=== PATIENT | female | born 1995 | race Caucasian/White ===

== ENCOUNTER 2022-02-08 08:36 | Outpatient (CLI) | payer BC, SELFPAY ==
--- NOTE | 2022-02-08 09:28 | PDOC.NST_ITS ---
Date of service: 02/08/22
--- NOTE | 2022-02-08 09:28 | W.OBNST ---
Date of service: 02/08/22
[2022-02-08 09:54] VITALS: BP 128/63; PULSE 86; TEMP 36.9
[2022-02-08 10:05] LABS: ROM Plus Negative
[2022-02-08 10:05] LABS: HGB 11.1 g/dL (11.2-15.7); MCH 28.8 pg (27.0-33.0); MCHC 32.6 % (32.0-36.0); MCV 88 fL (80-95); MPV 11.9 fL (8.0-11.0); Platelet Count 187 10^3/uL (130-400); RBC 3.86 10^6/uL (3.93-5.22); RDW-SD 43.7 fL; WBC 9.07 10^3/uL (4.4-10.8)
[2022-02-08 10:18] LABS: ALT 18 U/L (14-59); AST 15 U/L (15-37); Albumin 2.8 g/dL (3.4-5.0); Alkaline Phosphatase 135 U/L (46-116); Anion Gap 11.5 mmol/L (3-11); BUN 8 mg/dL (7-18); Bilirubin, Total 0.3 mg/dL (0.2-1.0); CO2 21.5 mmol/L (21.0-32.0); CREATININE 0.8 mg/dL (0.55-1.02); Chloride 105 mmol/L (98-107); Glucose 89 mg/dL (74-106); Potassium 3.7 mmol/L (3.5-5.1); Sodium 138 mmol/L (136-145); Total Protein 6.7 g/dL (6.4-8.2); Uric Acid 5.9 mg/dL (2.6-6.0)
--- NOTE | 2022-02-08 10:24 | PDOC.NST_ITS ---
Date of service: 02/08/22 Time of Service: 10:24 NST Evaluation Reason for NST Reasons for Nonstress Test: GESTATIONAL HYPERTENSION and OTHER, SEE COMMENT Reason for NST Other: question rupture Gestational Age Gestational Age in Weeks and Days: 38 Weeks and 0Days Test and Monitor Explained Test/Monitor Explained: Test Explained, Monitor Explained and Patient Verbalized Understanding Vital Signs Blood Pressure: 128/63 Pulse: 86 Temperature: 36.9 C Urine Results Urine Protein: Negative Urine Ketones: Negative Urine Glucose: Negative Urine Blood: Negative NST Information Date on Monitor: 02/08/22 Time on Monitor: 09:42 Date off Monitor: 02/08/22 Time off Monitor: 10:12 Total Time on Monitor: 30 NST Interventions: PO Hydration Contraction Frequency: 3-5 NST Evaluation Patient States Movement: Present FHR Baseline: 130 Variability: Moderate 6-25 bpm Accelerations: 15x15 Decelerations: None NST Results: Reactive Note NST Note Note: at 38 weeks presents for r/o SROM. course complicated by gestational HTN on labetalol. GBS negative. She states she had leakage of clear fluid after using the toilet last night with contractions starting soon after. They increased in intensity before stopping. She had two more episodes of leaking this morning, every time she stands up or valsalvas. Contractions are intermittent, able to talk through them. Baby is active. She states her BP on Monday was 150s/80s but has been better since then. Some black spots in her v ision today. She is hydrating. ROM plus was negative. Contractions are mild. Cervix is 1 cm and posterior. BP is normal. Labs are negative for preeclampsia. Plan: Discharge to home. Monitor contractions. Advised to call if they increase in intensity and stay regular for 1 hour. Will start induction for gestational hypertension when there is availability on L&D. NST Reviewed and Verified by: Caity Xavier
[2022-02-08 10:30] VITALS: BP 128/63; PULSE 86; TEMP 36.9
[2022-02-08 10:41] LABS: COMMENT (LAB VIEW ONLY) 8.01 mg/dL
[2022-02-08 10:42] LABS: PROTEIN < 6.0 mg/dL
== END 2022-02-08 10:25 | disposition home or self-care (01) ==
LOC: BCD 08:38 → OBS 09:25
PROVIDERS: Visit Provider Family Medicine
DX: O13.3 Gestational [pregnancy-induced] hypertension without significant proteinuria, third trimester (principal); Z3A.38 38 weeks gestation of pregnancy
CPT/HCPCS: 59025; 80053; 84112; 85027; 82565; 84156; 84550

== ENCOUNTER 2022-02-09 14:20 | Inpatient (IN) | payer BC, SELFPAY ==
[2022-02-09] VITALS (7 sets, daily range): BP systolic 117–143; BP diastolic 67–78; PULSE 75–96; RESP 18; TEMP 36.7–36.8
--- OUTSIDE RECORDS SUMMARY | 2022-02-09 14:53 | XMS_ITS | Clinical Summary ---
:1995 Author Organization [facility] [place] [address] Care Team Providers Name Role Phone Unavailable Primary Care Provider Unavailable Social History Tobacco Use Types Packs/Day Years Used Date Smoking Tobacco: Never Assessed Sex Assigned at Date Recorded Not on file Plan of Treatment Health Maintenance Due Date Last Done Comments Covid-19 Vaccine (#1) 06/08/1995 HIV screen 2012 Hepatitis C Screening 2012 Tdap adult 2013 Tetanus vaccine 2013 PAP Smear 12/09/2015 Influenza (Flu) vaccine (1 of 1 - Influenza standard 11/25/2021 series)
--- OUTSIDE RECORDS SUMMARY | 2022-02-09 14:53 | XMS_ITS | Encounter Summary ---
:1995 Author Organization [facility] [place] [address] Care Team Providers Name Role Phone Unavailable Primary Care Provider Unavailable Encounter Details Date Type Department Care Team Description 11/18/2020 Interpretation Only [facility], [address] [place] [address] Jory CONCERT PROMOTER [place], [place] [address] [phone] [place], [place] [phone] [id number] Social History Tobacco Use Types Packs/Day Years Used Date Smoking Tobacco: Never Assessed Sex Assigned at Date Recorded Not on file documented as of this encounter Plan of Treatment Not on filedocumented as of this encounter Procedures Procedure Name Priority Date/Time Associated Diagnosis Comme nts XR ANKLE MIN 3 Routine 11/18/2020 12:59 PM Result s for this VIEWS LEFT EDT procedure are i n the results section. documented in this encounter Results XR Ankle Min 3 views Left (Generic) (11/18/2020 12:59 PM EDT) P athologist Signature PT CLASS O RAD ADMITDTTM RAD PT RAD MD INFO [id number]^P RAD ERREAULT^EDWAR LEXIE EXAM DESC XRANKMVL^XR DH RAD LEFT ANKLE COMPLETE^RIS Anatomical Region Laterality Modality Ankle Left Radiographic Imaging Specimen (Source) Anatomical Location Collection Method / Collectio n Time Received Time / Laterality Volume Impressions 11/18/2020 1:48 PM EDT No fracture or dislocation. Thank you for letting us participate in the care of this patient. ??If you are a health care provider and have any questi ons regarding this report, please contact the number below. ??For patients who have questions please contact the health progressive care manager that requested your imaging first. ? Narrative 11/18/2020 1:48 PM EDT EXAMINATION: XR LEFT ANKLE COMPLETE CLINICAL HISTORY: acute left ankle pain TECHNIQUE: 3 views of the left ankle COMPARISON: None FINDINGS: No acute fracture or dislocation. Normal ankle joint alignment. No focal osseous lesions. Procedure Note Ab Chaudhari MD - 11/18/2020For matting of this note might be different from the original. EXAMINATION: XR LEFT ANKLE COMPLETE CLINICAL HISTORY: acute left ankle pain TECHNIQUE: 3 views of the left ankle COMPARISON: None FINDINGS: No acute fracture or dislocation. Normal ankle joint alignment. No focal osseous lesions. IMPRESSION No fracture or dislocation. Thank you for letting us participate in the care of this patient. If you are a health care provider and have any questi ons regarding this report, please contact the number below. For patients w ho have questions please contact the health progressive care manager that requested your imaging first. Jory Nuñez CONCERT PROMOTER IMG DX ORDERABLES documented in this encounter Visit Diagnoses Not on filedocumented in this encounter
--- OUTSIDE RECORDS SUMMARY | 2022-02-09 14:53 | XMS_ITS | Encounter Summary ---
:1995 Author Organization [facility] [place] [address] Care Team Providers Name Role Phone Unavailable Primary Care Provider Unavailable Encounter Details Date Type Department Care Team Description 07/09/2021 Interpretation Only [facility], [address] [place] [address] Jordy Ma MD [place], [place] [phone] [place], [place] [phone] (Wo rk) Social History Tobacco Use Types Packs/Day Years Used Date Smoking Tobacco: Never Assessed Sex Assigned at Date Recorded Not on file documented as of this encounter Plan of Treatment Not on filedocumented as of this encounter Procedures Procedure Name Priority Date/Time Associated Diagnosis Comme nts US OB TRANSVAGINAL Routine 07/09/2021 10:22 AM Re sults for this EDT procedure are i n the results section. documented in this encounter Results US OB Viability Transvaginal (07/09/2021 10:22 AM EDT) P athologist Signature PT CLASS O RAD ADMITDTTM RAD PT RAD INFO [id number]^L DH RAD ESSAC-CHENEN ^JORDY EXAM DESC UOBTV^US OB DH RAD TRANSVAGINAL ^RIS Anatomical Region Laterality Modality Pelvis, Abdomen Ultrasound Specimen (Source) Anatomical Location Collection Method / Collectio n Time Received Time / Laterality Volume Impressions 07/09/2021 10:29 AM EDT Normal live single intrauterine . Thank you for letting us participate in the care of this patient. ??If you are a health care provider and have any questi ons regarding this report, please contact the number below. ??For patients who have questions please contact the health personal care assistant that requested your imaging first. ? Electronically signed by: Mervin Del Valle MD, [facility] ([phone]), at 07/09/2021 10:29 AM Narrative 07/09/2021 10:29 AM EDT EXAMINATION: Endovaginal first trimester OB CLINICAL HISTORY: Dating scan COMPARISON: None FINDINGS: There is a single live intrauterine gest ation. Heart rate is 150 beats per min. Too early for morphology evaluatio n. The ovaries appear normal. No evidence of hemorrhage. biometry: CRL: ??1.19 Cm. ??7 W ??3 D Estimated gestational age by today's ult rasound: ??7 W ??3 D Estimated gestational age by LMP: ??7 W ??6 D Estimated date of delivery based in 1st trimester ultrasound: 02/19/2022 Procedure Note Mervin Del Valle MD - 07/09/2021Format ting of this note might be different from the original. EXAMINATION: Endovaginal first trimester OB CLINICAL HISTORY: Dating scan COMPARISON: None FINDINGS: There is a single live intrauterine gest ation. Heart rate is 150 beats per min. Too early for morphology evaluatio n. The ovaries appear normal. No evidence of hemorrhage. biometry: CRL: 1.19 Cm. 7 W 3 D Estimated gestational age by today's ult rasound: 7 W 3 D Estimated gestational age by LMP: 7 W 6 D Estimated date of delivery based in 1st trimester ultrasound: 02/19/2022 IMPRESSION Normal live single intrauterine pregnanc y. Thank you for letting us participate in the care of this patient. If you are a health care provider and have any questi ons regarding this report, please contact the number below. For patients w ho have questions please contact the health personal care assistant that requested your imaging first. Electronically signed by: Mervin Del Valle MD, [facility] ([phone]), at 07/09/2021 10:29 AM Jordy Lin MD IMG OB ORDERABLES documented in this encounter Visit Diagnoses Not on filedocumented in this encounter
--- NOTE | 2022-02-09 14:57 | HPE_ITS ---
Date of service: 02/09/22 Time of Service: 14:57 Assessment and Plan Assessment and plan (1) Gestational hypertension: Status: Acute Qualifiers: Trimester: third trimester Qualified Code(s): O13.3 - Gestational [-induced] hypertension without significant proteinuria, third trimester (2) : Status: Acute Assessment and plan: 26y at 38.1 with Rh+ RI GBS- Hep B-. complicated by gestational hypertension, treated effectively with labetalol 100mg bid. No proteinuria and Preelampsia labs normal yesterday. She has been having mild regular contractions since monday evening without cervical change. She is here for induction of labor due to gestational hypertension. SVE 1.5/30/-3/soft/mid. Will start with miso q4h. Will order labetalol as a prn for tonight with parameters of 150/100. No other risk factors. Qualifiers: Weeks of gestation: 38 weeks Qualified Code(s): Z3A.38 - 38 weeks gestation of OB-HPI Labor/Delivery History of Present Illness Reason for Visit: Induction of Labor Chief Complaint: Scheduled Induction of Labor Indication for Induction: Gestational Hypertension. NELL Calculator Estimated Delivery Date Method Current WG Current Estimate 02/22/22 LMP (Certain) 38w 1d History of Present Expected Delivery Route/Plan 26yo at 38.1 with complicated by gestational hypertension well controlled on labetalol 100mg bid. She is GBS- RH+ RI HepB-. Hypertension was accompanied by vision changes and headaches, but these have resolved with treat ment. Assessment: History Reviewed & Current Informed Consent Informed Consent: Induction of Labor Review of Systems All systems reviewed & are unremarkable except as noted in HPI and below PFSH All Active Problems (Updated 02/09/22 @ 15:06 by Jordy Lin) (Acute) Gestational hypertension (Acute) Social History Smoking risk assessment performed?: No Exam Physical Exam Vital Signs Reviewed: Yes Constitutional Constitutional: no acute distress Detailed Labor and Delivery Exam Dilation: 1.5 Effacement (%): 30 station: -3 Cervix position: mid Consistency: soft Wright Score: Cervical Points Exam 0 1 2 3 Dilation Closed 1-2cm 3-4 cm 5-6cm Effacement 0-30% 40-50% 60-70% 80% Consistency Firm Medium Soft Station -3 -2 -1,0 +1,+2 Position Posterior Mid Anterior WRIGHT Score(Cervical Ripeness Score): 4 Amniotic Membrane Status: Intact Monitor Mode: External Contraction Frequency(min): irregular Contraction Intensity: Mild Fetus A Monitor Accelerations: Present Monitor Decelerations: None Variability: Moderate (6-25 BPM) Presentation: Vertex Categories: Category I HEENT Exam HEENT Exam: Normal Respiratory Exam Respiratory Exam: Normal Cardiovascular Exam Cardiovascular Exam: Normal Abdominal Exam Abdominal Exam: Normal Exam Exam: Normal Extremities Exam Extremities Exam: Normal Back/Spine/Pelvis Exam Pelvis Adequate: Yes Skin Exam Skin Exam: Normal Neurological Exam Neurological Exam: Normal Psychiatric Exam Psychiatric Exam: Normal Results Results Group Beta Strep: Negative Rubella Status: Immune Varicella Immunity: Not Tested Risk Assessment Risk for Shoulder Dystocia Increased Risk?: No Risk for Pre-Eclampsia Daily Dose ASA Indicated: Yes Yes, if one or more: POSTIVE FOR: Hx Pre-E/Gest HTN Yes, if 2 or more: POSITIVE FOR: Nulliparity Risk for Post- Hemorrhage At Risk?: No Counseled re: Active Management: Yes Risks Reviewed Risks Reviewed Upon Admission: Yes
[2022-02-09 15:07] LABS: HCT 33.3 % (36.0-46.0); HGB 11.1 g/dL (11.2-15.7); MCH 29.2 pg (27.0-33.0); MCHC 33.3 % (32.0-36.0); MCV 88 fL (80-95); MPV 12.1 fL (8.0-11.0); Platelet Count 191 10^3/uL (130-400); RDW 14.4 % (11.7-14.6); RDW-SD 44.5 fL; WBC 8.56 10^3/uL (4.4-10.8)
[2022-02-09] MEDS: miSOPROStol 25 MCG TAB PO ×2 (15:34→20:05)
[2022-02-09 15:37] LABS: Source Nasal/Nares
[2022-02-09 16:14] LABS: COVID-19 PCR Negative (Negative)
--- NOTE | 2022-02-09 20:00 | W.PM.OBNL1 ---
Date of service: 02/09/22 Time of Service: 20:00 Informed Consent Informed Consent: Induction of Labor Contractions Contraction Frequency(min): none Fetus A Heart Rate Baseline: 130 Variability: Moderate (6-25 BPM) Categories: Category I Accelerations: Present Decelerations: None Assessment and Plan Assessment and plan (1) : Status: Acute Qualifiers: Weeks of gestation: 38 weeks Qualified Code(s): Z3A.38 - 38 weeks gestation of (2) Gestational hypertension: Status: Acute Qualifiers: Trimester: third trimester Qualified Code(s): O13.3 - Gestational [-induced] hypertension without significant proteinuria, third trimester (3) Encounter for induction of labor: Status: Acute Assessment and plan: G1 at 38.1 weeks here for IOL for gestational HTN. Feeling well. No significant contractions as of yet. FHT Cat I. BP has increased this evening, will restart labetalol as scheduled med with holding parameters. Plan miso q4h overnight. Anticipate pitocin in the morning. Objective Abnormal lab results 02/09/22 Range/Units 15:00 RBC 3.80 L (3.93-5.22) 10^6/uL Hgb 11.1 L (11.2-15.7) g/dL Hct 33.3 L (36.0-46.0) % MPV 12.1 H (8.0-11.0) fL Temp Pulse Resp BP 36.7 C 81 18 143/78 H 02/09/22 17:26 02/09/22 19:39 02/09/22 17:26 02/09/22 19:39 Laboratory Results WBC 8.56 10^3/uL (4.4-10.8) 02/09/22 15:00 RBC 3.80 10^6/uL (3.93-5.22) L 02/09/22 15:00 Hgb 11.1 g/dL (11.2-15.7) L 02/09/22 15:00 Hct 33.3 % (36.0-46.0) L 02/09/22 15:00 MCV 88 fL (80-95) 02/09/22 15:00 MCH 29.2 pg (27.0-33.0) 02/09/22 15:00 MCHC 33.3 % (32.0-36.0) 02/09/22 15:00 RDW 14.4 % (11.7-14.6) 02/09/22 15:00 Plt Count 191 10^3/uL (130-400) 02/09/22 15:00 MPV 12.1 fL (8.0-11.0) H 02/09/22 15:00 COVID-19 Source Nasal/Nares 02/09/22 14:31 SARS-CoV-2 (PCR) Negative (Negative) 02/09/22 14:31 Patient ABO/Rh A Positive 02/09/22 15:00 Antibody Screen NEGATIVE 02/09/22 15:00 Subjective Interval history since last seen: Sis is doing well. Had some mild contractions after first dose of miso, none now. Baby is very active. Some bloody show with voiding. Denies headache, vision changes, RUQ pain, significant edema. Results Hemoglobin/Hematocrit: Hgb 11.1 g/dL (11.2-15.7) L 02/09/22 15:00 Hct 33.3 % (36.0-46.0) L 02/09/22 15:00 Abnormal Lab Findings: Abnormal Labs 02/09/22 15:00 RBC 3.80 L Hgb 11.1 L Hct 33.3 L MPV 12.1 H
[2022-02-09] MEDS: Labetalol 100 MG TAB PO (20:05)
[2022-02-10] VITALS (28 sets, daily range): BP systolic 114–144; BP diastolic 57–93; PULSE 75–121; RESP 18–20; TEMP 36.9; O2SAT 98–100; BMI 35.0
[2022-02-10] MEDS: miSOPROStol 25 MCG TAB PO ×2 (04:01)
[2022-02-10] MEDS: Labetalol 100 MG TAB PO (08:26)
--- NOTE | 2022-02-10 08:53 | W.PM.OBNL1 ---
Date of service: 02/10/22 Time of Service: 08:30 Informed Consent Informed Consent: Induction of Labor Pelvic Exam Dilation: 3 Effacement (%): 50 station: -2 Cervix Position: anterior Consistency: soft BISHOPS Score(Cervical Ripeness Score): 8 Contractions Contraction Frequency(min): 2-4 Fetus A Heart Rate Baseline: 140 Presentation: Vertex Variability: Moderate (6-25 BPM) Categories: Category I Accelerations: Present Decelerations: None Assessment and Plan Assessment and plan (1) Encounter for induction of labor: Status: Acute (2) Gestational hypertension: Status: Acute Assessment and plan: Sis has made significant cervical change s/p 4 doses of misoprostol. Cat I FHT. BP controlled on labetalol 100mg BID. Will start pitocin. Continue labetalol with holding parameters. Encourage ambulation. Asked for another more secure IV to be placed. Qualifiers: Trimester: third trimester Qualified Code(s): O13.3 - Gestational [-induced] hypertension without significant proteinuria, third trimester Objective Abnormal lab results 02/09/22 Range/Units 15:00 RBC 3.80 L (3.93-5.22) 10^6/uL Hgb 11.1 L (11.2-15.7) g/dL Hct 33.3 L (36.0-46.0) % MPV 12.1 H (8.0-11.0) fL Temp Pulse Resp BP 36.9 C 77 18 127/62 02/10/22 07:45 02/10/22 07:38 02/10/22 07:45 02/10/22 07:38 Laboratory Results WBC 8.56 10^3/uL (4.4-10.8) 02/09/22 15:00 RBC 3.80 10^6/uL (3.93-5.22) L 02/09/22 15:00 Hgb 11.1 g/dL (11.2-15.7) L 02/09/22 15:00 Hct 33.3 % (36.0-46.0) L 02/09/22 15:00 MCV 88 fL (80-95) 02/09/22 15:00 MCH 29.2 pg (27.0-33.0) 02/09/22 15:00 MCHC 33.3 % (32.0-36.0) 02/09/22 15:00 RDW 14.4 % (11.7-14.6) 02/09/22 15:00 Plt Count 191 10^3/uL (130-400) 02/09/22 15:00 MPV 12.1 fL (8.0-11.0) H 02/09/22 15:00 COVID-19 Source Nasal/Nares 02/09/22 14:31 SARS-CoV-2 (PCR) Negative (Negative) 02/09/22 14:31 Patient ABO/Rh A Positive 02/09/22 15:00 Antibody Screen NEGATIVE 02/09/22 15:00 Subjective Interval history since last seen: Sis states she is doing well. Cramping on and off overnight. Thinks she lost her mucous plug. Was able to get some rest. Has received 4 doses of miso. Results Hemoglobin/Hematocrit: Hgb 11.1 g/dL (11.2-15.7) L 02/09/22 15:00 Hct 33.3 % (36.0-46.0) L 02/09/22 15:00 Abnormal Lab Findings: Abnormal Labs 02/09/22 15:00 RBC 3.80 L Hgb 11.1 L Hct 33.3 L MPV 12.1 H
[2022-02-10] MEDS: Lactated Ringers 1,000 ML 125 ML IV (10:18)
[2022-02-10] MEDS: Oxytocin/Normal Saline 30 UNIT/500 ML BAG 2 UNITS IV (10:18)
--- NOTE | 2022-02-10 14:38 | W.PM.OBNL1 ---
Date of service: 02/10/22 Time of Service: 14:38 Informed Consent Informed Consent: Induction of Labor Pelvic Exam Dilation: 4 Effacement (%): 70 station: -2 Cervix Position: anterior Contractions Contraction Frequency(min): 2-3 Fetus A Heart Rate Baseline: 140 Variability: Moderate (6-25 BPM) Categories: Category I Accelerations: Present Decelerations: None Assessment Note: Late decelerations present x3 occasions but have since resolved with no intervention Assessment and Plan Assessment and plan (1) Encounter for induction of labor: Status: Acute (2) Gestational hypertension: Status: Acute Assessment and plan: Sis is in a good contraction pattern with moderate intensity of contractions. Late decelerations present briefly but since resolved with moderate variability and accelerations since. Increase pitocin per protocol. BPs acceptable on labetalol, continue to monitor for signs/symptoms of preeclampsia. Qualifiers: Trimester: third trimester Qualified Code(s): O13.3 - Gestational [-induced] hypertension without significant proteinuria, third trimester Objective Abnormal lab results 02/09/22 Range/Units 15:00 RBC 3.80 L (3.93-5.22) 10^6/uL Hgb 11.1 L (11.2-15.7) g/dL Hct 33.3 L (36.0-46.0) % MPV 12.1 H (8.0-11.0) fL Temp Pulse Resp BP 36.9 C 78 18 131/80 02/10/22 07:45 02/10/22 14:28 02/10/22 07:45 02/10/22 14:28 Laboratory Results WBC 8.56 10^3/uL (4.4-10.8) 02/09/22 15:00 RBC 3.80 10^6/uL (3.93-5.22) L 02/09/22 15:00 Hgb 11.1 g/dL (11.2-15.7) L 02/09/22 15:00 Hct 33.3 % (36.0-46.0) L 02/09/22 15:00 MCV 88 fL (80-95) 02/09/22 15:00 MCH 29.2 pg (27.0-33.0) 02/09/22 15:00 MCHC 33.3 % (32.0-36.0) 02/09/22 15:00 RDW 14.4 % (11.7-14.6) 02/09/22 15:00 Plt Count 191 10^3/uL (130-400) 02/09/22 15:00 MPV 12.1 fL (8.0-11.0) H 02/09/22 15:00 COVID-19 Source Nasal/Nares 02/09/22 14:31 SARS-CoV-2 (PCR) Negative (Negative) 02/09/22 14:31 Patient ABO/Rh A Positive 02/09/22 15:00 Antibody Screen NEGATIVE 02/09/22 15:00 Subjective Interval history since last seen: Pitocin started 4 hours ago. Sis states contractions are getting a little more uncomfortable. Tolerating well. Occ floaters in her vision, longstanding during this , no other concerning symptoms. Results Hemoglobin/Hematocrit: Hgb 11.1 g/dL (11.2-15.7) L 02/09/22 15:00 Hct 33.3 % (36.0-46.0) L 02/09/22 15:00 Abnormal Lab Findings: Abnormal Labs 02/09/22 15:00 RBC 3.80 L Hgb 11.1 L Hct 33.3 L MPV 12.1 H
[2022-02-10] MEDS: Ondansetron 4 MG TAB (20:05)
--- NOTE | 2022-02-10 21:05 | ANES.PREOP_ITS ---
General Info Date of Service Date Performed: 02/10/22 Height: 5 ft 3 in Weight: 89.811 kg Body Mass Index (BMI): 35.0 Meds Allergies and Home Medications Allergies Allergy/AdvReac Type Severity Reaction Status Date / Time No Known Allergies Allergy Unverified 02/09/22 17:26 Home Medication Medication Instructions Recorded ferrous sulfate 325 mg (65 mg 325 mg PO 1XD 02/09/22 iron) tablet (Iron (ferrous sulfate)) labetalol 100 mg tablet 100 mg PO 2XD 02/09/22 magnesium 2 tab PO 1XD 02/09/22 prenat.vits,rebecca,[id number] 2 tab PO 1XD 02/09/22 (KPN tablet) Current Visit Medications: Current Medications Generic Name Dose Route Start Last Admin Trade Name Freq PRN Reason Stop Dose Admin Acetaminophen 650 mg 02/09/22 19:59 Acetaminophen 325 Mg Tab PO Q4H PRN PRN Calcium Carbonate 500 mg 02/09/22 19:59 Calcium Carbonate *Tums* 500 Mg Chew PO TID PRN PRN Sodium Chloride 500 mls @ 0 mls/hr 02/09/22 14:27 Saline 500ml Bag IV PRN PRN As Directed Ringer's Solution 1,000 mls @ 200 mls/hr 02/09/22 14:30 IV INFUSION POLLY Ringer's Solution 1,000 mls @ 125 mls/hr 02/10/22 09:00 02/10/22 10:18 IV 125 mls/hr INFUSION POLLY Administration Oxytocin/Sodium Chloride 30 unit in 500 mls @ 2 mls/hr 02/10/22 09:00 02/10/22 15:30 Pitocin/Normal Saline IV 13 milliunits/min INFUSION POLLY 13 mls/hr Titration Protocol 2 MILLIUNITS/MIN IV Miscellaneous Supplies 1 each 02/09/22 14:30 Iv Access IV DIRECTED POLLY Labetalol HCl 100 mg 02/09/22 20:00 02/10/22 08:26 Labetalol 100 Mg Tab PO 100 mg BID POLLY Administration Ondansetron HCl 4 mg 02/10/22 20:00 Ondansetron 4 Mg Tab PO Q6H PRN PRN Sodium Chloride 0 ml 02/09/22 14:27 Normal Saline Flush 10 Ml Syr IVP PRN PRN Terbutaline Sulfate 0.25 mg 02/09/22 14:27 Terbutaline 1 Mg/Ml Vial SC PRN PRN PFSH Active Problems Active Problems: Problem Status Onset Code Encounter for induction of labor Z34.90 Z34.90 Gestational hypertension O13.9 Tobacco Smoking/Tobacco Use Status: Never Alcohol Alcohol Intake: former Substance Use Substance use: Never Substance use type: does not use Prental History History 1 Para 0 Hx # Term Pregnancies Multiple births Hx # Pregnancies Ectopic pregnancies AB induced Hx Number of Living Children AB spontaneous Vital Signs and Lab Results Vital Signs Most Recent Vital Signs in EMR: Most Recent Vital Signs Temp Pulse Resp BP 36.9 C 84 20 137/93 H 02/10/22 07:45 02/10/22 20:07 02/10/22 17:35 02/10/22 20:07 Lab Results Result Diagrams: 02/09/22 15:00 Blood Type / Crossmatch: Patient ABO/Rh A Positive 02/09/22 Antibody Screen NEGATIVE 02/09/22 Complete Blood Count: White Blood Count 8.56 10^3/uL (4.4-10.8) 02/09/22 15:00 Red Blood Count 3.80 10^6/uL (3.93-5.22) L 02/09/22 15:00 Hemoglobin 11.1 g/dL (11.2-15.7) L 02/09/22 15:00 Hematocrit 33.3 % (36.0-46.0) L 02/09/22 15:00 Platelet Count 191 10^3/uL (130-400) 02/09/22 15:00 Complete Metabolic Panel: Sodium 138 mmol/L (136-145) 02/08/22 09:50 Potassium 3.7 mmol/L (3.5-5.1) 02/08/22 09:50 Chloride 105 mmol/L (98-107) 02/08/22 09:50 Carbon Dioxide 21.5 mmol/L (21.0-32.0) 02/08/22 09:50 BUN 8 mg/dL (7-18) 02/08/22 09:50 Creatinine 0.8 mg/dL (0.55-1.02) 02/08/22 09:50 Est GFR (CKD-EPI 2020) 103.50 (mL/min/1.73m2) 02/08/22 09:50 Calcium 9.0 mg/dL (8.5-10.1) 02/08/22 09:50 Albumin 2.8 g/dL (3.4-5.0) L 02/08/22 09:50 Glucose 89 mg/dL (74-106) 02/08/22 09:50 Liver Function Panel: Alanine Aminotransferase (ALT/SGPT) 18 U/L (14-59) 02/08/22 09: 50 Aspartate Amino Transf (AST/SGOT) 15 U/L (15-37) 02/08/22 09:50 Coagulation Panel: No Data to Display Cardiac Panel: No Data to Display Arterial Blood Gas: No Data to Display Venous Blood Gas: No Data to Display Pancreas Panel: No Data to Display Thyroid Panel: No Data to Display Infectious Disease: Coronavirus (COVID-19)(PCR) Negative (Negative) 02/09/22 14:31 Coronavirus 2019 Source Nasal/Nares 02/09/22 14:31 Blood Cultures: No Data to Display Toxicology Panel: No Data to Display Panel: No Data to Display Anesthesia Assessment and Plan Anesthesia History Personal History: No History of Anesthesia Complications Family History: No Family History of Anesthesia Complications Exercise Tolerance Exercise Tolerance: Metabolic Equivalents>4 Pertinent Negatives Pertinent Negatives: No Symptoms of GERD and No Major Pulmonary Symptoms or Complaints Cardiac & Pulmonary Exam Cardiac Exam: Normal S1/S2 Heart Sounds Pulmonary Exam: Clear Bilateral Breath Sounds Implantable Cardiac Device Does patient have a Pacemaker or an ICD?: No Airway Exam Known Difficult Airway: No Mallampati Class: 2 Mouth Opening: Normal (> 3cm) Thyromental Distance: Greater than 3 cm Neck Range of Motion: Full ROM Neck Circumference: Normal Teeth Condition: Normal Dentition ASA Classification ASA Score: ASA 2 Emergency Case?: No NPO Status NPO Status: Full Stomach Status Status: Confirmed Anesthesia Plan Resuscitation Status: Full Code Anesthesia Technique: Epidural Anesthesia Airway Planned: Natural Airway Monitors Used: Standard Monitors
--- NOTE | 2022-02-10 21:09 | W.PM.OBNL1 ---
Date of service: 02/10/22 Time of Service: 20:00 Informed Consent Informed Consent: Induction of Labor Contractions Contraction Frequency(min): 2 Fetus A Heart Rate Baseline: 140 Variability: Moderate (6-25 BPM) Categories: Category I Accelerations: Absent Decelerations: None Assessment and Plan Assessment and plan (1) Encounter for induction of labor: Status: Acute (2) Gestational hypertension: Status: Acute Assessment and plan: Significant increase in contraction intensity after AROM. Anesthesia paged for epidural. Cat I FHT. BPs acceptable on labetalol BID. Anticipate Qualifiers: Trimester: third trimester Qualified Code(s): O13.3 - Gestational [-induced] hypertension without significant proteinuria, third trimester Objective Temp Pulse Resp BP 36.9 C 84 20 137/93 H 02/10/22 07:45 02/10/22 20:07 02/10/22 17:35 02/10/22 20:07 Laboratory Results WBC 8.56 10^3/uL (4.4-10.8) 02/09/22 15:00 RBC 3.80 10^6/uL (3.93-5.22) L 02/09/22 15:00 Hgb 11.1 g/dL (11.2-15.7) L 02/09/22 15:00 Hct 33.3 % (36.0-46.0) L 02/09/22 15:00 MCV 88 fL (80-95) 02/09/22 15:00 MCH 29.2 pg (27.0-33.0) 02/09/22 15:00 MCHC 33.3 % (32.0-36.0) 02/09/22 15:00 RDW 14.4 % (11.7-14.6) 02/09/22 15:00 Plt Count 191 10^3/uL (130-400) 02/09/22 15:00 MPV 12.1 fL (8.0-11.0) H 02/09/22 15:00 COVID-19 Source Nasal/Nares 02/09/22 14:31 SARS-CoV-2 (PCR) Negative (Negative) 02/09/22 14:31 Patient ABO/Rh A Positive 02/09/22 15:00 Antibody Screen NEGATIVE 02/09/22 15:00 Subjective Interval history since last seen: Sis is now on 13 of pit. AROM by Dr. Arias for clear fluid at 1925. Contractions have increased in intensity. Using nitrous to some effect, requesting epidural. Results Hemoglobin/Hematocrit: Hgb 11.1 g/dL (11.2-15.7) L 02/09/22 15:00 Hct 33.3 % (36.0-46.0) L 02/09/22 15:00 Abnormal Lab Findings: Abnormal Labs 02/09/22 15:00 RBC 3.80 L Hgb 11.1 L Hct 33.3 L MPV 12.1 H
--- NOTE | 2022-02-10 21:34 | W.PM.OBNL1 ---
Date of service: 02/11/22 Time of Service: 03:37 Informed Consent Informed Consent: Induction of Labor Fetus A Heart Rate Baseline: 145 Assessment and Plan Assessment and plan (1) Encounter for induction of labor: Status: Acute (2) Gestational hypertension: Status: Acute Assessment and plan: Requested Dr. Arias to bedside to examine descent and maternal pushing efficacy. Due to minimal descent of head after 3.5 hours of pushing and maternal fatigue, decision made to proceed to . Qualifiers: Trimester: third trimester Qualified Code(s): O13.3 - Gestational [-induced] hypertension without significant proteinuria, third trimester Objective Temp Pulse Resp BP 36.9 C 84 20 137/93 H 02/10/22 07:45 02/10/22 20:07 02/10/22 17:35 02/10/22 20:07 Laboratory Results WBC 8.56 10^3/uL (4.4-10.8) 02/09/22 15:00 RBC 3.80 10^6/uL (3.93-5.22) L 02/09/22 15:00 Hgb 11.1 g/dL (11.2-15.7) L 02/09/22 15:00 Hct 33.3 % (36.0-46.0) L 02/09/22 15:00 MCV 88 fL (80-95) 02/09/22 15:00 MCH 29.2 pg (27.0-33.0) 02/09/22 15:00 MCHC 33.3 % (32.0-36.0) 02/09/22 15:00 RDW 14.4 % (11.7-14.6) 02/09/22 15:00 Plt Count 191 10^3/uL (130-400) 02/09/22 15:00 MPV 12.1 fL (8.0-11.0) H 02/09/22 15:00 COVID-19 Source Nasal/Nares 02/09/22 14:31 SARS-CoV-2 (PCR) Negative (Negative) 02/09/22 14:31 Patient ABO/Rh A Positive 02/09/22 15:00 Antibody Screen NEGATIVE 02/09/22 15:00 Subjective Interval history since last seen: Sis has pushed for the last 3.5 hours. I was at bedside for the majority of this time. head has not descended past +2 with pushing. Sis is tired and asked to discuss options. Results Hemoglobin/Hematocrit: Hgb 11.1 g/dL (11.2-15.7) L 02/09/22 15:00 Hct 33.3 % (36.0-46.0) L 02/09/22 15:00 Abnormal Lab Findings: Abnormal Labs 02/09/22 15:00 RBC 3.80 L Hgb 11.1 L Hct 33.3 L MPV 12.1 H
[2022-02-10] MEDS: FentaNYL/ROPIvacaine 2 mcg/ml and 0.1% 200 ML CADD Cassette EP (22:10)
--- NOTE | 2022-02-10 22:38 | ANES.NEUR_ITS ---
Epidural/Spinal Catheter Date Performed: 02/10/22 Procedure Start: 22:10 Procedure Stop: 22:39 Requesting Provider: Caity Xavier Procedure Location: Obstetrics Reason Performed: Labor Epidural Standard Monitors Applied: Blood Pressure, SpO2 and See EMR for corresponding vital signs Patient Position: Sitting Sedation Given (Indicate Dose Given): No Sedation given Patient Mental Status: Awake Sterility: Hand Hygiene, Surgical Cap, Surgical Mask, Sterile Gloves, Sterile Drape/Sheet, Eye Protection and Chlorhexidine Procedure Location: L2-L3 Interspace Epidural Needle: Tuohy 18 Gauge Needle Length: 3.5 Inch Needle Approach: Midline Epidural Procedure: Skin Prepped, Sterile Drape Placed, 1% Lidocaine to skin and subcutaneous tissue with 25G needle, Tuohy Needle placed, BETHANY to Saline Used, Epidural Catheter Placed, Negative CSF Flow and Tuohy Needle Removed Catheter Placed?: Catheter Placed Test Dose (Indicate Dose Given): 3ml 1.5% Lidocaine with 1:200K Epinephrine Given and Negative Test Dose Loss of Resistance Depth (cm): 8 Catheter depth at skin (cm): 16 Dressing: [place] Dressing Placed, Mastisol Used and Dressing reinforced with Tape Epidural Provi brian Bolus (Indicate Dose Given): None Given, Total bolus dose given in 3-5 ml divided doses and Total Ropivacaine 0.1% with Fentanyl 2mcg/ml Given from pump. (ml) Dose:: 5mL Additives (Indicate Dose Given ): None Infusion Medication: Medication Infusion Began Medication Infusion: Ropivacaine 0.1% with Fentanyl 2mcg/ml Maintenance Infusion Rate (ml/hour): 10 PCEA Bolus Dose (ml): 5 Block Level: T8 and Other (More on left than right, noted to have a slight curve to back. Patient educated that catheter may be to one side more than other.) Paresthesia: None Ultrasound: Not Used Number of Attempts (See previous attempts in note section): 2 Procedure Tolerated: No Complications Procedure Outcome: Successful Performed By: Kathy Mendieta
--- NOTE | 2022-02-10 22:56 | W.PM.OBNL1 ---
Date of service: 02/10/22 Time of Service: 22:56 Informed Consent Informed Consent: Induction of Labor Pelvic Exam Dilation: 8 Effacement (%): 100 station: 0 Fetus A Heart Rate Baseline: 140 Variability: Moderate (6-25 BPM) Categories: Category I Accelerations: Present Decelerations: None Assessment Note: Period of minimal variability after epidural placed, has since improved with moderate variability and an acceleration during cervical check Assessment and Plan Assessment and plan (1) Encounter for induction of labor: Status: Acute (2) Gestational hypertension: Status: Acute Assessment and plan: Sis is now more comfortable with epidural, making excellent cervical change. FHT currently cat I and maternal BP stable. Anticipate . Qualifiers: Trimester: third trimester Qualified Code(s): O13.3 - Gestational [-induced] hypertension without significant proteinuria, third trimester Objective Temp Pulse Resp BP Pulse Ox 36.9 C 93 H 20 119/60 99 02/10/22 07:45 02/10/22 22:46 02/10/22 17:35 02/10/22 22:46 02/10/22 22:23 Laboratory Results WBC 8.56 10^3/uL (4.4-10.8) 02/09/22 15:00 RBC 3.80 10^6/uL (3.93-5.22) L 02/09/22 15:00 Hgb 11.1 g/dL (11.2-15.7) L 02/09/22 15:00 Hct 33.3 % (36.0-46.0) L 02/09/22 15:00 MCV 88 fL (80-95) 02/09/22 15:00 MCH 29.2 pg (27.0-33.0) 02/09/22 15:00 MCHC 33.3 % (32.0-36.0) 02/09/22 15:00 RDW 14.4 % (11.7-14.6) 02/09/22 15:00 Plt Count 191 10^3/uL (130-400) 02/09/22 15:00 MPV 12.1 fL (8.0-11.0) H 02/09/22 15:00 COVID-19 Source Nasal/Nares 02/09/22 14:31 SARS-CoV-2 (PCR) Negative (Negative) 02/09/22 14:31 Patient ABO/Rh A Positive 02/09/22 15:00 Antibody Screen NEGATIVE 02/09/22 15:00 Subjective Interval history since last seen: Received epidural and much more comfortable, although with ongoing R sided discomfort during contractions. Relative hypotension after epidural, with blurry vision, vision has now improved back to baseline and BP has increased as well. Results Hemoglobin/Hematocrit: Hgb 11.1 g/dL (11.2-15.7) L 02/09/22 15:00 Hct 33.3 % (36.0-46.0) L 02/09/22 15:00 Abnormal Lab Findings: Abnormal Labs 02/09/22 15:00 RBC 3.80 L Hgb 11.1 L Hct 33.3 L MPV 12.1 H
[2022-02-11] VITALS (22 sets, daily range): BP systolic 104–143; BP diastolic 58–88; PULSE 73–134; RESP 16–18; TEMP 36.4–36.7; O2SAT 93–97
--- NOTE | 2022-02-11 01:11 | W.PM.OBNL1 ---
Date of service: 02/11/22 Time of Service: 01:12 Informed Consent Informed Consent: Induction of Labor Pelvic Exam Dilation: 10 Effacement (%): 100 station: 0 Contractions Contraction Frequency(min): 2-3 Fetus A Heart Rate Baseline: 140 Variability: Moderate (6-25 BPM) Accelerations: Present Decelerations: Variable Recurrence: Intermittent Assessment and Plan Assessment and plan (1) Encounter for induction of labor: Status: Acute (2) Gestational hypertension: Status: Acute Assessment and plan: Sis is fully dilated and pushing on hands and knees. FHT cat I with moderate variability and only rare variable decelerations. Continue pushing, anticipate . Qualifiers: Trimester: third trimester Qualified Code(s): O13.3 - Gestational [-induced] hypertension without significant proteinuria, third trimester Objective Temp Pulse Resp BP Pulse Ox 36.9 C 121 H 20 143/86 H 99 02/10/22 07:45 02/11/22 00:27 02/10/22 17:35 02/11/22 00:27 02/10/22 22:23 Laboratory Results WBC 8.56 10^3/uL (4.4-10.8) 02/09/22 15:00 RBC 3.80 10^6/uL (3.93-5.22) L 02/09/22 15:00 Hgb 11.1 g/dL (11.2-15.7) L 02/09/22 15:00 Hct 33.3 % (36.0-46.0) L 02/09/22 15:00 MCV 88 fL (80-95) 02/09/22 15:00 MCH 29.2 pg (27.0-33.0) 02/09/22 15:00 MCHC 33.3 % (32.0-36.0) 02/09/22 15:00 RDW 14.4 % (11.7-14.6) 02/09/22 15:00 Plt Count 191 10^3/uL (130-400) 02/09/22 15:00 MPV 12.1 fL (8.0-11.0) H 02/09/22 15:00 COVID-19 Source Nasal/Nares 02/09/22 14:31 SARS-CoV-2 (PCR) Negative (Negative) 02/09/22 14:31 Patient ABO/Rh A Positive 02/09/22 15:00 Antibody Screen NEGATIVE 02/09/22 15:00 Subjective Interval history since last seen: Sis became fully dilated and started pushing. Difficulty keeping heart rate on the external monitors consistently so FSE was placed by Dr. Arias. Results Hemoglobin/Hematocrit: Hgb 11.1 g/dL (11.2-15.7) L 02/09/22 15:00 Hct 33.3 % (36.0-46.0) L 02/09/22 15:00 Abnormal Lab Findings: Abnormal Labs 02/09/22 15:00 RBC 3.80 L Hgb 11.1 L Hct 33.3 L MPV 12.1 H
--- NOTE | 2022-02-11 03:36 | OBCE_ITS ---
Date of service: 02/11/22 Time of Service: 03:36 Assessment and Plan Assessment and plan (1) Encounter for induction of labor: Status: Acute Assessment and plan: Patient has failed induction with arrest of descent. We will proceed to primary section. Risk benefits alternatives of section discussed with the patient and her family including risk of infection, bleeding, injury to s urrounding organs, risk of anesthesia, risk of thromboembolism. She will have compression stockings, antibiotic prophylaxis, and anesthesia evaluation. (2) Gestational hypertension: Status: Acute Assessment and plan: Stable Qualifiers: Trimester: third trimester Qualified Code(s): O13.3 - Gestational [-induced] hypertension without significant proteinuria, third trimester History of Present Illness History of Present Illness Chief Complaint: Arrest of descent Narrative: Patient is a 26-year-old female primigravida at 38 weeks gestation with gestational hypertension. She had a labor induction yesterday with cervical ripening followed by Pitocin augmentation of her labor, artificial rupture membranes for clear. She progressed to the point that she was completely dilated. With moderate maternal effort, and station for approximately 3 hours. She had arrest of descent. vertex was noted to be in the occiput posterior position with significant scalp molding and caput. Patient was exhausted, and had somewhat poor pain control. Risk benefits alternatives of section versus continued pushing were discussed. Patient opted for section. Consults Consult date: 02/11/22 Requesting physician: Caity Xavier Review of Systems Narrative: Painful regular contractions with significant amount of pressure Constitutional Constitutional: Reports as per HPI Cardiovascular Cardiovascular: Reports as per HPI Respiratory Respiratory: Reports as per HPI Genitourinary Genitourinary: Reports system reviewed and no additional complaints, except as documented PFSH All Active Problems Encounter for induction of labor (Acute) (Acute) Gestational hypertension (Acute) Social History Smoking/Tobacco Use Status: Never Smoking risk assessment performed?: Yes Alcohol Intake: former Drug use: Never Substance use type: does not use Do you feel safe at home: Yes Do you feel safe in your relationship?: Yes History History 1 Para 0 Hx # Term Pregnancies Multiple births Hx # Pregnancies Ectopic pregnancies AB induced Hx Number of Living Children AB spontaneous Exam Narrative Exam Narrative: Significant pain with contractions, maternal exhaustion HENMT Head: normal to inspection Eyes General: appearance normal, both eyes and all related structures Resp Effort & Inspection: normal respiratory effort, no cough and no respiratory distress Auscultation: clear to auscultation bilaterally Cardio Rate: regular rate Rhythm: regular rhythm Other: Completely dilated, significant caput and molding noted. vertex not fully ischial spine. Has been pushing for just over 3 hours. No significant discharge from the vertex. Results Last Vital Signs Temp 98.4 F 02/10/22 07:45 Pulse 134 H 02/11/22 02:34 Resp 20 02/10/22 17:35 BP 138/88 02/11/22 02:34 Pulse Ox 99 02/10/22 22:23 Labs Result diagrams: 02/09/22 15:00
[2022-02-11] MEDS: ceFAZolin 2 GM/50 ML BAG IVPB (03:50)
[2022-02-11] MEDS: Sodium Citrate 30 ML CUP PO (04:05)
[2022-02-11] MEDS: Lactated Ringers 1,000 ML 125 ML IV (05:01)
--- NOTE | 2022-02-11 05:14 | PLAC_PTH ---
PATIENT: Sis Burgos LOC: OBS U#:[id number] AGE/SX: 26/F ROOM: OBS.306 RE02/09/[address]: Jordy Lin : 1995 BED: A DIS: 02/13/2022 SPEC #: [id number] RECD: 02/11/22 13:04 STATUS: STEPHEN REQ #: [id number] NAYA: 02/11/22 05:[address]: Jordy Lin DEPT: Surgical Specimen RECD BY: Neetu Correa Tissues: 1 - PLACENTA (3RD TRIMESTER) Procedures: GROSS AND MICRO LEVEL 5 Comments: [id number]
[2022-02-11] MEDS: Bupivacaine 0.25% Pres-Free 30 ML VIAL (05:20)
--- NOTE | 2022-02-11 05:31 | W.PM.OBCSECT ---
Date of service: 02/11/22 Time of Service: 05:31 Operative Note Operative Note Delivery Method: Unscheduled STAT: No and Primary (Failed induction, arrest of descent) NTSV>37 Weeks: Yes DATE OF PROCEDURE: 02/11/22 PRE-OP DIAGNOSES: at 38-4/7 weeks gestation, gestational hypertension, failed induc POST-OP DIAGNOSES: same Persistent occiput posterior PROCEDURE: Primary low-transverse section SURGEON: Natalie Arias Anesthesia: local and spinal Estimated blood loss (mL): 300 Pathology: other (Placenta for exam) Complications: None Patient was transported to: floor Patient's condition: stable Indications: Arrest of descent after 3 hours of pushing. Failed induction Findings: Delivery of a viable female from a persistent occiput posterior position with significant caput. Normal tubes, ovaries, uterus Procedure Description: After full informed consent was obtained, patient was taken the operating suite with an IV running. She was placed in the seated position and her previous epidural catheter was removed. Spinal anesthesia was administered for anesthesia, tested, and found to be adequate. She was placed in the dorsal supine position with leftward tilt and after exam to elevate the vertex out of the pelvis, vaginal prep was performed. Lowe catheter was inserted for continuous bladder drainage. Pneumatic compression stockings had been previously placed and were working. Patient did receive 2 g of Ancef and 500 mg of Zithromax prior to start of procedure. She was then prepped and draped in the usual sterile fashion. Spinal anesthesia was tested and found to be adequate. Pfannenstiel skin incision was made carried down to the underlying fascia. The fascia was then nicked in the midline and extended laterally. Fascia was then elevated, rectus muscles identified and split in the midline. The peritoneum was identified tented up and entered sharply and bladder blade was inserted. The vesicouterine peritoneum was identified tented up and entered sharply and the bladder flap created. Bladder blade was then reinserted and a low transverse uterine incision was made with a scalpel and extended bluntly laterally. There was continued evidence of clear fluid. The vertex was deep within the pelvis and the baby was in the persistent occiput posterior position. There is significant amount of caput and with gentle elevation of the vertex from the deep aspect of the pelvis, the vertex was delivered through the incision. There was no evidence of nuchal cord. Shoulders followed with ease. Three-vessel cord was noted clamped x2 after delayed cord clamping and the infant was handed off to the waiting family practitioner. At this point cord blood sample was obtained in the placenta was manually expressed from the uterus. The uterus and exteriorized and cleared of all clots and debris. The uterine incision was noted to be low in the lower uterine segment, approximately 1 cm from the cervix. The uterine incision was then closed using 0 Vicryl suture in a running locked fashion first, followed by a second layer of imbricating stitches. The uterine incision was noted to be hemostatic. The uterus was then returned to the abdomen. Abdomen was irrigated with copious amounts of normal saline, uterine incision inspected and found to be hemostatic. The fascial incision was then closed using 0 Vicryl suture in a running fashion. Subcutaneous tissue irrigated with copious amounts of normal saline and reapproximated with 3-0 Vicryl in a simple interrupted fashion. Quarter percent Marcaine was infiltrated at the skin edge for postoperative pain control. The skin edge was then closed with 4-0 undyed Monocryl in a subcuticular fashion. Steri-Strips and sterile dressing were placed. Uterus was firm after delivery, closure of the uterus, and upon removal to the patient's bed. Patient was taken back to the floor in stable condition with a Lowe catheter draining clear yellow urine EBL: 300 cc Complications: None apparent Fluids: Crystalloid per anesthesia Pathology: Placenta for examination [place] Gestational Age in Weeks/Days: 38 Weeks and 3 Days Gender: Female
[2022-02-11] MEDS: Labetalol 100 MG TAB PO ×2 (08:27→21:01)
[2022-02-11] MEDS: Normal Saline Flush 10 ML SYR IVP ×2 (11:33→17:45)
[2022-02-11] MEDS: Ketorolac 30 MG/ML VIAL IVP ×2 (11:33→17:45)
--- NOTE | 2022-02-11 14:05 | W.ANESPOSTOP ---
Postoperative Evaluation Date, Time and Location Date Performed: 02/11/22 Time Performed: 14:06 Patient Location: Day Surgery Unit Vital Signs Most Recent Imported Vital Signs: Most Recent Vital Signs Temp Pulse Resp BP Pulse Ox 36.4 C 76 17 117/74 97 02/11/22 06:00 02/11/22 06:45 02/11/22 06:00 02/11/22 06:45 02/11/22 06:45 Pain Score Most Recent Pain Score: Most Recent Pain Score Pain Level 2 02/11/22 11:33 Assessment Mental Status: Awake (Alert & Oriented to Patient Baseline) Airway and Respiratory Function: Patent airway with normal (patient baseline) respiratory exam Cardiovascular Function: Hemodynamically Stable Hydration Status: Adequately Hydrated Nausea & Vomiting: No Nausea or Vomiting Pain: Pain is tolerable per patient Peripheral Nerve Block: Patient did not receive a nerve block
--- NOTE | 2022-02-11 16:52 | W.PM.OBPNV1 ---
Date of service: 02/11/22 Time of Service: 16:52 Exam Physical Exam Vital signs: Temp Pulse Resp BP Pulse Ox 98 F 74 18 120/77 97 02/11/22 08:00 02/11/22 13:00 02/11/22 13:00 02/11/22 13:00 02/11/22 13:00 Narrative: Patient seen postoperative day #0 status post primary low transverse section for arrest of descent. She is doing exceedingly well. Vital signs are stable. Pain is under good control. She would like her Lowe catheter out and she has been ambulating. We will check a CBC in the morning. Anticipate routine and postoperative care. Results Hemoglobin/Hematocrit: Hgb 11.1 g/dL (11.2-15.7) L 02/09/22 15:00 Hct 33.3 % (36.0-46.0) L 02/09/22 15:00 Abnormal Lab Findings: Abnormal Labs 02/09/22 15:00 RBC 3.80 L Hgb 11.1 L Hct 33.3 L MPV 12.1 H
[2022-02-12] MEDS: Ketorolac 30 MG/ML VIAL IVP (01:49)
[2022-02-12 06:12] LABS: Absolute Basophil Count 0.03 10^3/uL (0.0-0.2); Absolute Eosinophil Count 0.07 10^3/uL (0.0-0.7); Absolute Lymphocyte Count 2.58 10^3/uL (1.2-3.4); Absolute Monocyte Count 1.03 10^3/uL (0.1-0.8); Absolute Neutrophil Count 9.42 10^3/uL (1.2-6.7); Basophils % 0.2; Eosinophils % 0.5; HGB 10.5 g/dL (11.2-15.7); Immature Grans % 0.8; Lymphocytes % 19.5; MCH 29.6 pg (27.0-33.0); MCHC 32.8 % (32.0-36.0); MCV 90 fL (80-95); MPV 11.9 fL (8.0-11.0); Monocytes % 7.8; Neutrophils % 71.2; Platelet Count 171 10^3/uL (130-400); RBC 3.55 10^6/uL (3.93-5.22); RDW-SD 48.6 fL; WBC 13.23 10^3/uL (4.4-10.8)
[2022-02-12 08:30] VITALS: BP 123/75; PULSE 91; RESP 20; TEMP 36.6
[2022-02-12] MEDS: Labetalol 100 MG TAB PO ×2 (08:49→20:34)
[2022-02-12 09:00] VITALS: TEMP 36.6
[2022-02-12] MEDS: Acetaminophen 325 MG TAB 650 MG PO ×2 (09:00→20:34)
[2022-02-12] MEDS: Ibuprofen 600 MG TAB PO ×2 (09:01→16:03)
--- NOTE | 2022-02-12 09:12 | W.PM.OBPNV1 ---
Date of service: 02/12/22 Time of Service: 09:12 Assessment and Plan Assessment and plan (1) Status post primary low transverse section: Status: Acute Assessment and plan: Postoperative day #1 status post primary low transverse section. Doing well. Routine postoperative care. Blood pressure stable. Hemoglobin stable. Anticipate discharge home tomorrow. Exam Physical Exam Vital signs: Temp Pulse Resp BP Pulse Ox 97.9 F 75 18 124/75 97 02/12/22 09:00 02/11/22 21:00 02/11/22 21:00 02/11/22 21:00 02/11/22 21:00 Vital Signs Reviewed: Yes Constitutional Constitutional: no acute distress HEENT Exam HEENT Exam: Normal Neck Exam Neck Exam: Normal Respiratory Exam Respiratory Exam: Normal Cardiovascular Exam Cardiovascular Exam: Normal Abdominal Exam Abdomen: Tender Fundal Exam Fundus: Below Umbilicus and Firm Extremities Exam Extremity Exam: Normal; negative Calf Tenderness Neurological Exam Neurological Exam: Normal Psychiatric Exam Psychiatric Exam: Normal Results Hemoglobin/Hematocrit: Hgb 10.5 g/dL (11.2-15.7) L 02/12/22 06:00 Hct 32.0 % (36.0-46.0) L 02/12/22 06:00 Abnormal Lab Findings: Abnormal Labs 02/09/22 02/12/22 15:00 06:00 WBC 13.23 H RBC 3.80 L 3.55 L Hgb 11.1 L 10.5 L Hct 33.3 L 32.0 L RDW 15.0 H MPV 12.1 H 11.9 H Absolute Neutrophils 9.42 H Absolute Monocytes 1.03 H
[2022-02-12 14:12] VITALS: BP 123/72; PULSE 78; RESP 18; TEMP 36.8
[2022-02-12 16:29] VITALS: BP 124/80; PULSE 77; RESP 18; TEMP 36.6
[2022-02-12 20:20] VITALS: BP 125/80; PULSE 80; RESP 18; TEMP 37.4; O2SAT 97
[2022-02-13] MEDS: Acetaminophen 325 MG TAB 650 MG PO (06:35)
[2022-02-13] MEDS: Ibuprofen 600 MG TAB PO (06:36)
[2022-02-13] MEDS: Labetalol 100 MG TAB PO (08:57)
--- NOTE | 2022-02-13 09:34 | W.PM.OBPNV1 ---
Date of service: 02/13/22 Time of Service: 09:34 Assessment and Plan Assessment and plan (1) Status post primary low transverse section: Status: Acute Assessment and plan: Postoperative day #2 status post primary low transverse section for labor arrest. Discharge home today. (2) Gestational hypertension: Status: Acute Assessment and plan: Stable on medication just Qualifiers: Trimester: third trimester Qualified Code(s): O13.3 - Gestational [-induced] hypertension without significant proteinuria, third trimester (3) Anxiety: Status: Chronic Assessment and plan: Begin Celexa for anxiety Subjective Subjective Interval history: Patient seen and examined this morning. Emotionally having some anxiety. Physically feeling well. Patient comments: Pain well controlled, Tolerating diet and Other Patient's Mood: anxious baby status: Doing well and Nursing well Exam Physical Exam Vital signs: Temp Pulse Resp BP Pulse Ox 99.3 F 80 18 125/80 97 02/12/22 20:20 02/12/22 20:20 02/12/22 20:20 02/12/22 20:20 02/12/22 20:20 Vital Signs Reviewed: Yes Constitutional Constitutional: no acute distress, average body habitus, cooperative and combative HEENT Exam HEENT Exam: Normal Neck Exam Neck Exam: Normal Respiratory Exam Respiratory Exam: Normal Cardiovascular Exam Cardiovascular Exam: Normal Abdominal Exam Abdomen: Tender Comments: Incision is clean, dry, intact Fundal Exam Fundus: Below Umbilicus and Firm Extremities Exam Extremity Exam: Normal and Edema (1+) Psychiatric Exam Psychiatric Exam: Normal Results Hemoglobin/Hematocrit: Hgb 10.5 g/dL (11.2-15.7) L 02/12/22 06:00 Hct 32.0 % (36.0-46.0) L 02/12/22 06:00 Abnormal Lab Findings: Abnormal Labs 02/09/22 02/12/22 15:00 06:00 WBC 13.23 H RBC 3.80 L 3.55 L Hgb 11.1 L 10.5 L Hct 33.3 L 32.0 L RDW 15.0 H MPV 12.1 H 11.9 H Absolute Neutrophils 9.42 H Absolute Monocytes 1.03 H
--- NOTE | 2022-02-13 09:55 | DSE_ITS ---
Date of service: 02/13/22 Time of Service: 09:55 DS: Diagnosis Discharge Diagnosis (1) Status post primary low transverse section: Status: Acute Asessment and Plan: Post op day #2. Doing well. D/C home (2) Gestational hypertension: Status: Acute Asessment and Plan: Continue Labetalol, follow up 1 week (3) Anxiety: Status: Chronic Asessment and Plan: Celexa 10 mg. Encouraged counseling Discharge Plan Disposition Condition: Improving Discharge Details Reason For Visit: Induction of Labor Admit Date/Time: 02/09/22 14:20 Admit Provider: Jordy Lin Attending Provider: Jordy Lin Hospital Course Hospital Course: Patient was admitted at 38 weeks and 4 days by family practice for labor induction due to gestational hypertension. She received cervical ripening, followed by Pitocin augmentation. She had artificial rupture of membranes for clear fluid. She had pitocin augmentation followed by epidural for pain control. She had labor arrest after pushing for 3 hours, and had a primary section with persistent occiput posterior. She had an uncomplicated post operative course and was discharged home post operative day # 2 on PO medication with the addition of Celexa for post anxiety Home Meds and New Rx's Prescriptions: New ibuprofen 800 mg tablet 800 mg PO Q8H PRNQty: 30 1RF docusate sodium [Colace] 100 mg capsule 100 mg PO BID Qty: 30 1RF oxycodone-acetaminophen [Percocet] 5-325 mg tablet 1 tab PO TID PRNQty: 7 0RF citalopram [Celexa] 10 mg tablet 10 mg PO DAILY Qty: 30 3RF Continued labetalol 100 mg tablet 100 mg PO 2XD Label Comments: TAKE 1 TABLET BY MOUTH TWICE DAILY ferrous sulfate [Iron (ferrous sulfate)] 325 mg (65 mg iron) Tablet 325 mg PO 1XD Rx Instructions: Daily tablet for anemia KPN Tablet 2 tab PO 1XD Discontinued magnesium Tablet 2 tab PO 1XD Discharge Instructions Stand Alone Forms: BC Instructions, BC Discharge In struc Activity:: no heavy lifting, pelvic Equipment/Supplies:: No Equipment Needed Diet:: As Tolerated OB:DS Summary Summary Episiotomy Description: None Laceration Description: None Laceration Extension: N/A Contraception Discussed Contraception Discussed: Yes Contraceptive Plan: Undecided, [place] Infant Gender-Baby A: Female weight: 6 lb 8.764 oz Status at Discharge Functional status at discharge: independent ambulation Overall status at discharge: patient is progressing back to baseline Mental Status: mental status grossly normal Speech and Movement: speech and movement normal Mood: congruent mood Affect: normal affect Exam Physical Exam Vital signs: Temp Pulse Resp BP Pulse Ox 99.3 F 80 18 125/80 97 02/12/22 20:20 02/12/22 20:20 02/12/22 20:20 02/12/22 20:20 02/12/22 20:20 Narrative: See physical exam from progress note dated 02/13/2022 [facility] All Active Problems (Updated 02/13/22 @ 09:36 by Natalie Arias DO) Anxiety (Chronic) Status post primary low transverse section (Acute) Encounter for induction of labor (Acute) (Acute) Gestational hypertension (Acute) Social History Smoking/Tobacco Use Status: Never Smoking risk assessment performed?: Yes Alcohol Intake: former Drug use: Never Substance use type: does not use Do you feel safe at home: Yes Do you feel safe in your relationship?: Yes History History 1 Para 0 Hx # Term Pregnancies Multiple births Hx # Pregnancies Ectopic pregnancies AB induced Hx Number of Living Children AB spontaneous DS: Data Vitals/I&O Vitals and I&O: Vital Signs Temperature 99.3 F 02/12/22 20:20 Pulse 80 02/12/22 20:20 Pulse Rhythm Regular 02/12/22 20:20 Respiratory Rate 18 02/12/22 20:20 Respiratory Depth Normal 02/12/22 20:20 Blood Pressure 125/80 02/12/22 20:20 Blood Pressure Mean 95 02/12/22 20:20 Pulse Oximetry 97 02/12/22 20:20 Oxygen Delivery Method Room Air 02/09/22 17:26 Oxygen Flow Rate 0 02/09/22 17:26 Pain Level 2 02/12/22 16:29 Comment 02/10/22 07:38 Intake & Output 02/12/22 02/12/22 02/13/22 11:59 23:59 11:59 Intake Total 500 / 500 Output Total 1000 / 1000 Balance -1000 / -500 500 / -500 Intake: Oral 500 / 500 Output: Urine 1000 / 1000 Other: Urine Color Yellow
== END 2022-02-13 13:05 | disposition home or self-care (01) | DRG 788 ==
PROVIDERS: Obstetrics & Gynecology; Admitting Provider Family Medicine; Visit Provider Family Medicine
PROC: 10D00Z1 Extraction of Products of Conception, Low, Open Approach (ICD-10-PCS; CPT 59514; principal; 2022-02-11 04:00)
DX: O13.4 Gestational [pregnancy-induced] hypertension without significant proteinuria, complicating childbirth (principal); Z3A.38 38 weeks gestation of pregnancy; Z37.0 Single live birth; O62.1 Secondary uterine inertia; O61.0 Failed medical induction of labor; O99.344 Other mental disorders complicating childbirth; F41.9 Anxiety disorder, unspecified
CPT/HCPCS: 59514; 36415; 85027; 86850; 86900; 86901; 87635; 85025; 88307; J0131; J0690; J1885; J2370; J2405; J3010; J3490; J8597